=== PATIENT | male | born 1995 | race Two or more races ===

== ENCOUNTER 2022-03-30 20:37 | Emergency (ER) | payer SELFPAY ==
[~2022-03-30] VITALS: Ht 167.6 cm; Wt 81.8 kg
[2022-03-30 20:41] VITALS: BP 133/74
[2022-03-30] MEDS ORDERED: KETOROLAC TROMETHAMINE 10 MG TABLET PO ONE (21:00)
== END 2022-03-30 22:15 | disposition home or self-care (01) ==
LOC: EMS 20:38
DX: S62.522A Displaced fracture of distal phalanx of left thumb, initial encounter for closed fracture (principal); W23.0XXA Caught, crushed, jammed, or pinched between moving objects, initial encounter; Y93.66 Activity, soccer; Y92.89 Other specified places as the place of occurrence of the external cause; Y99.8 Other external cause status
CPT/HCPCS: 99283